=== PATIENT | female | born 1980 | race African-American/Black ===

== ENCOUNTER 2022-09-15 15:52 | Outpatient (CLI) | payer OTHER | END 2022-09-15 15:53 | disposition home or self-care (01) | LOC: CSHULT 15:52 | PROVIDERS: ATTEND Family Medicine | DX: E04.1 Nontoxic single thyroid nodule (principal); E04.2 Nontoxic multinodular goiter | CPT/HCPCS: 76536 ==

== ENCOUNTER 2023-02-22 07:42 | Day surgery (SDC) | payer OTHER ==
[2023-02-18 11:27] VITALS: BMI 29.1
[2023-02-22 08:59] LABS: BHCG - Serum Negative (NEGATIVE); Pregs Control Background? CLEAR/WHITE (CLR/WHITE); Pregs Control Bar Appear? YES (CONTROL BAR)
== END 2023-02-22 10:50 | disposition home or self-care (01) ==
LOC: CSHSDC 07:42
PROVIDERS: ATTEND Internal Medicine Gastroenterology
PROC: 0DJ08ZZ Inspection of Upper Intestinal Tract, Via Natural or Artificial Opening Endoscopic (ICD-10-PCS; principal; 2023-02-22)
DX: K21.9 Gastro-esophageal reflux disease without esophagitis (principal); G43.909 Migraine, unspecified, not intractable, without status migrainosus; Z90.49 Acquired absence of other specified parts of digestive tract; K44.9 Diaphragmatic hernia without obstruction or gangrene; Z91.040 Latex allergy status; Z91.038 Other insect allergy status; Z91.048 Other nonmedicinal substance allergy status; Z79.899 Other long term (current) drug therapy
CPT/HCPCS: 36415; 84703

== ENCOUNTER 2023-09-20 14:08 | Outpatient (CLI) | payer OTHER | END 2023-09-20 14:09 | disposition home or self-care (01) | LOC: CSHMAMMO 14:08 | PROVIDERS: ATTEND Nurse Practitioner Family | DX: Z12.31 Encounter for screening mammogram for malignant neoplasm of breast (principal) | CPT/HCPCS: 77063; 77067 ==

== ENCOUNTER 2024-07-27 07:12 | Outpatient (CLI) | payer OTHER | END 2024-07-27 07:13 | disposition home or self-care (01) | LOC: CSHCT 07:12 | PROVIDERS: ATTEND Orthopaedic Surgery Hand Surgery | DX: M96.89 Other intraoperative and postprocedural complications and disorders of the musculoskeletal system (principal) ==

== ENCOUNTER 2024-08-29 09:21 | Outpatient (CLI) | payer OTHER | END 2024-08-29 09:22 | disposition home or self-care (01) | LOC: CSHMRI 09:21 | PROVIDERS: ATTEND Nurse Practitioner Family | DX: M47.26 Other spondylosis with radiculopathy, lumbar region (principal); M48.061 Spinal stenosis, lumbar region without neurogenic claudication; M48.07 Spinal stenosis, lumbosacral region; M41.86 Other forms of scoliosis, lumbar region; M41.84 Other forms of scoliosis, thoracic region | CPT/HCPCS: 72148 ==